=== PATIENT | female | born 1985 | race African-American/Black ===

== ENCOUNTER 2019-09-08 11:38 | Emergency (ER) | payer SELFPAY ==
[2019-09-08] MEDS ORDERED: Ketorolac Tromethamine 60 MG/2 ML VIAL ONE (12:28)
--- NOTE | 2019-09-08 19:04 | RAD ---
LEFT FEMUR 09/08/19 AP and lateral views cover the entire femur. There is no sign of fracture. No periosteal reaction was seen. The hip joint was unremarkable in appearance. There are some early degenerative changes in thi s patient's knee consisting of osteophytes, both compartments, but more so medially than laterally. N o joint effusion was seen at the knee. There is a suggestion of old Bradley-Schlatter's disease here. IMPRESSION: 1. No acute traumatic findings. 2. Premature arthritic changes of the knee. POS: HOME
== END 2019-09-08 12:46 | disposition home or self-care (01) ==
LOC: BURERS 11:38
DX: S83.91XA Sprain of unspecified site of right knee, initial encounter (principal); S76.011A Strain of muscle, fascia and tendon of right hip, initial encounter; F17.210 Nicotine dependence, cigarettes, uncomplicated; W18.30XA Fall on same level, unspecified, initial encounter; Y93.67 Activity, basketball
CPT/HCPCS: 96372; J1885